=== PATIENT | female | born 1980 | race Two or more races ===

== ENCOUNTER 2018-11-18 03:56 | Observation (INO) | payer SELFPAY ==
[2018-11-18] MEDS ORDERED: Ketorolac 30 MG/ML SDV IVPUSH ONE (03:59)
[2018-11-18] MEDS ORDERED: Sodium Chloride 0.9% 1,000 ML IV ONE (03:59)
[2018-11-18] MEDS ORDERED: Ondansetron 4 MG/2 ML SDV IVPUSH ONE (03:59)
--- NOTE | 2018-11-18 03:59 | EDM.PDOC ---
<George Barbosa - Last Filed: 11/18/18 06:23> ED HPI GENERAL MEDICAL PROBLEM - General Stated Complaint: ABDOMINAL PAIN Time Seen by Provider: 11/18/18 03:59 Source of Information: Reports: Patient - History of Present Illness INITIAL COMMENTS - FREE TEXT/NARRATIVE: HISTORY AND PHYSICAL: History of present illness: [Patient presents with abdominal pain epigastric in nature radiating to the back Pain has been present 8 out of 10 since yesterday, she has had pain intermittently for the last year, she has been told that it may be biliary colic , and she has been making diet and weight loss adjustments accordingly she is not had any prior imaging no fever nausea vomiting chills sweats no chest pain shortness breath headache dizziness palpitation no bowel or urine symptoms Review of systems: As per history of present illness and below otherwise all systems reviewed and negative. Past medical history: As per history of present illness and as reviewed below otherwise noncontributory. Surgical history: As per history of present illness and as reviewed below otherwise noncontributory. Social history: No reported history of drug or alcohol abuse. Family history: As per history of present illness and as reviewed below otherwise noncontributory. Physical exam: HEENT: Atraumatic, normocephalic, pupils reactive, negative for conjunctival pallor or scleral icterus, mucous membranes moist, throat clear, neck supple, nontender, trachea midline. Lungs: Clear to auscultation, breath sounds equal bilaterally, chest nontender. Heart: S1S2, regular, negative for clicks, rubs, or JVD. Abdomen: Soft, nondistend multiple foci tenderness in right lower quadrant as well as right upper and epigastrium no guarding or rebound, negative for masses or hepatosplenomegaly. Negative for costovertebral tenderness. Pelvis: Stable nontender. Genitourinary: Deferred. Rectal: Deferred. Extremities: Atraumatic, negative for cords or calf pain. Neurovascular unremarkable. Neuro: Awake, alert, oriented. Cranial nerves II through XII unremarkable. Cerebellum unremarkable. Motor and sensory unremarkable throughout. Exam nonfocal. Diagnostics: [] CBC CMP UA lipase troponin CT abdomen pelvis with contrast Abdomen right upper quadrant limited Therapeutics: [] normal saline 1 L bolus toradol 30 mg IV Morphine 2 mg IV Impression: []pancreatitis Definitive disposition and diagnosis as appropriate pending reevaluation and review of above. Upper Abdomen Pain Score (Numeric/FACES): 8 - Related Data Allergies Allergy/AdvReac Type Severity Reaction Status Date / Time No Known Allergies Allergy Verified 11/18/18 04:12 Home Meds: Home Meds . [No Known Home Meds] 11/18/18 [History] Course - Vital Signs Last Recorded V/S: Last Vital Signs Temp 36.7 C 11/18/18 04:09 Pulse 74 11/18/18 07:28 Resp 16 11/18/18 07:28 BP 127/51 L 11/18/18 07:28 Pulse Ox 98 11/18/18 07:28 - Orders/Labs/Meds Orders: Active Orders 24 hr Category Date Time Status UA RFX KHLOE AND CULT IF INDIC [URIN] Stat Lab 11/18/18 03:00 Ordered Levofloxacin/Dextrose 5%-Water [Levaquin in D5W 750 MG/ Med 11/18/18 08:07 Active 150 ML] 750 mg Premix Bag 1 bag IV ONETIME Sodium Chloride 0.9% [Normal Saline] 1,000 ml Med 11/18/18 06:30 Active IV STAT metroNIDAZOLE/Normal Saline [Flagyl 500 MG in NS 100 ML Med 11/18/18 08:07 Active ] 500 mg Premix Bag 1 bag IV ONETIME Medication Orders Sodium Chloride (Normal Saline) 1,000 mls @ 150 mls/hr IV STAT KAELA Last Admin: 11/18/18 07:39 Dose: 150 mls/hr Levofloxacin/Dextrose 750 mg/ (Premix) 150 mls @ 100 mls/hr IV ONETIME ONE Stop: 11/18/18 09:36 Metronidazole 500 mg/ Premix 100 mls @ 100 mls/hr IV ONETIME ONE Stop: 11/18/18 09:06 Labs: Laboratory Tests 11/18/18 11/18/18 11/18/18 Range/Units 03:30 04:18 04:18 WBC 12.92 H (4.0-11.0) K/uL RBC 4.73 (4.30-5.90) M/uL Hgb 14.2 (12.0-16.0) g/dL Hct 41.9 (36.0-46.0) % MCV 88.6 (80.0-98.0) fL MCH 30.0 (27.0-32.0) pg MCHC 33.9 (31.0-37.0) g/dL RDW Std Deviation 44.9 (28.0-62.0) fl RDW Coeff of Kami 14 (11.0-15.0) % Plt Count 231 (150-400) K/uL MPV 10.90 (7.40-12.00) fL Neut % (Auto) 79.7 (48.0-80.0) % Lymph % (Auto) 15.6 L (16.0-40.0) % White % (Auto) 4.1 (0.0-15.0) % Eos % (Auto) 0.5 (0.0-7.0) % Baso % (Auto) 0.1 (0.0-1.5) % Neut # (Auto) 10.3 H (1.4-5.7) K/uL Lymph # (Auto) 2.0 (0.6-2.4) K/uL White # (Auto) 0.5 (0.0-0.8) K/uL Eos # (Auto) 0.1 (0.0-0.7) K/uL Baso # (Auto) 0.0 (0.0-0.1) K/uL Nucleated RBC % 0.0 /100WBC Nucleated RBCs # 0 K/uL Sodium 136 (136-145) mmol/L Potassium 3.7 (3.5-5.1) mmol/L Chloride 101 (98-107) mmol/L Carbon Dioxide 26.6 (21.0-32.0) mmol/L BUN 6 L (7.0-18.0) mg/dL Creatinine 0.8 (0.6-1.0) mg/dL Est Cr Clr Drug Dosing 68.49 mL/min Estimated GFR (MDRD) > 60.0 ml/min Glucose 134 H (74-106) mg/dL Calcium 9.8 (8.5-10.1) mg/dL Total Bilirubin 1.6 H (0.2-1.0) mg/dL AST 211 H (15-37) IU/L ALT 305 H (14-63) IU/L Alkaline Phosphatase 192 H (46-116) U/L Troponin I < 0.050 (0.000-0.056) ng/mL Total Protein 7.6 (6.4-8.2) g/dL Albumin 3.0 L (3.4-5.0) g/dL Globulin 4.6 H (2.6-4.0) g/dL Albumin/Globulin Ratio 0.7 L (0.9-1.6) Lipase 1722 H (73-393) U/L Urine HCG, Qual NEGATIVE (NEGATIVE) Meds: Medications Generic Name Dose Route Start Last Admin Trade Name Freq PRN Reason Stop Dose Admin Sodium Chloride 1,000 mls @ 150 mls/hr 11/18/18 06:30 11/18/18 07:39 Normal Saline IV 150 mls/hr STAT KAELA Administration Levofloxacin/Dextrose 750 mg/ 150 mls @ 100 mls/hr 11/18/18 08:07 Premix IV 11/18/18 09:36 ONETIME ONE Metronidazole 500 mg/ Premix 100 mls @ 100 mls/hr 11/18/18 08:07 IV 11/18/18 09:06 ONETIME ONE Discontinued Medications Generic Name Dose Route Start Last Admin Trade Name Freq PRN Reason Stop Dose Admin Sodium Chloride 1,000 mls @ 999 mls/hr 11/18/18 03:59 11/18/18 04:18 Normal Saline IV 11/18/18 04:59 999 mls/hr STAT ONE Administration Iopamidol 100 ml 11/18/18 05:56 11/18/18 05:57 [id number] (76%) IVPUSH 11/18/18 05:57 100 ml ONETIME ONE Administration Ketorolac Tromethamine 30 mg 11/18/18 03:59 11/18/18 04:18 Toradol IVPUSH 11/18/18 04:00 30 mg ONETIME ONE Administration Morphine Sulfate 2 mg 11/18/18 06:02 11/18/18 06:13 Morphine IVPUSH 11/18/18 06:03 2 mg ONETIME ONE Administration Ondansetron HCl 8 mg 11/18/18 03:59 11/18/18 04:19 Zofran IVPUSH 11/18/18 04:00 8 mg ONETIME ONE Administration Departure - Departure Disposition: Refer to Observation Clinical Impression: Abdominal pain, Cholecystitis - Discharge Information Referrals: PCP,None [Primary Care Provider] - - My Orders Last 24 Hours: My Active Orders 11/18/18 08:07 Levofloxacin/Dextrose 5%-Water [Levaquin in D5W 750 MG/150 ML] 750 mg Premix Bag 1 bag IV ONETIME metroNIDAZOLE/Normal Saline [Flagyl 500 MG in NS 100 ML] 500 mg Premix Bag 1 bag IV ONETIME - Assessment/Plan Last 24 Hours: My Active Orders 11/18/18 08:07 Levofloxacin/Dextrose 5%-Water [Levaquin in D5W 750 MG/150 ML] 750 mg Premix Bag 1 bag IV ONETIME metroNIDAZOLE/Normal Saline [Flagyl 500 MG in NS 100 ML] 500 mg Premix Bag 1 bag IV ONETIME <Leandro Lockwood - Last Filed: 11/18/18 08:12> ED ROS GENERAL - Review of Systems Review Of Systems: ROS reveals no pertinent complaints other than HPI. ED EXAM, GENERAL - Physical Exam Exam: See Below (See dictation) Course - Vital Signs Text/Narrative:: Patient's emergency department course is been unremarkable ultrasound demonstrates a 7 mm common bile duct without evidence of common bile duct stone she does have wall thickening noted of her gallbladder in addition to cholelithiasis patient pain has been well controlled in emergency department antibiotics were ordered in the form of Levaquin and Flagyl case was discussed with general surgery who graciously has accepted the patient for admission as observation. Impression is #1 cholecystitis Departure - Departure Time of Disposition: 08:11 Condition: Good
[2018-11-18 04:51] LABS: CHLORIDE,CL 101 mmol/L (98-107); SODIUM,NA 136 mmol/L (136-145)
[2018-11-18] MEDS ORDERED: Iopamidol 755 Mg/ML 100 ML Bottle IVPUSH ONE (05:56)
[2018-11-18] MEDS ORDERED: Morphine 2 MG/ML Syringe IVPUSH ONE (06:02)
--- NOTE | 2018-11-18 06:18 | CT ---
INDICATION: Abdominal pain TECHNIQUE: CT abdomen and pelvis acquired with IV contrast. 100 cc Isovue 370 COMPARISON: None FINDINGS: Lower chest: Unremarkable. Liver: Hepatic steatosis Spleen: Unremarkable. Pancreas: Unremarkable. Gallbladder and bile ducts: Distended gallbladder with mild gallbladder wall thickening and pericholecystic fluid. Common bile duct at 9 millimeters. Findings worrisome for cholecystitis. Kidneys: Unremarkable. Adrenal glands: Unremarkable. GI tract: Colonic fecal retention. Appendix is normal. Vascular structures: Unremarkable. Lymph nodes: Unremarkable. Miscellaneous: Unremarkable. No free air or significant free fluid. Pelvic Organs: 3.0 centimeter right ovarian/adnexal cyst. Mild diffuse bladder wall thickening Bones: Unremarkable for age. IMPRESSION: Distended gallbladder with gallbladder wall thickening and pericholecystic fluid. Common bile duct dilated up to 9 millimeters. Findings worrisome for cholecystitis. Hepatic steatosis. Mild diffuse bladder wall thickening. 3.0 centimeter right ovarian/adnexal cyst. Colonic fecal retention. Normal appendix. Dictated by Mack Ferguson MD @ 11/18/2018 6:15:44 AM Please note that all CT scans at this facility use dose modulation, iterative reconstruction, and/or weight-based dosing when appropriate to reduce radiation dose to as low as reasonably achievable. Dictated by: Mack Ferguson MD @ 11/18/2018 06:15:54 (Electronically Signed)
[2018-11-18] MEDS ORDERED: Sodium Chloride 0.9% 1,000 ML IV SCH (06:30)
--- NOTE | 2018-11-18 08:04 | US ---
INDICATION: Pain. TECHNIQUE: Conventional two-dimensional grayscale ultrasound of the right upper quadrant. COMPARISON: Abdomen/pelvis CT performed earlier today. FINDINGS: Stones are present in the gallbladder. Mild gallbladder wall thickening is noted along with a small amount of pericholecystic fluid. No gallbladder wall thickening or pericholecystic fluid is demonstrated. The patient is reportedly not tender over the gallbladder. Note, however, the patient has received pain medication. No intrahepatic biliary ductal dilation is evident. The common bile duct measures 7 mm. Fatty change is demonstrated in the liver. The liver is normal in size and shape. The pancreas is within normal limits. The right kidney is unremarkable. The visualized portion of the abdominal aorta and inferior vena cava are negative. IMPRESSION: 1. Cholelithiasis and presumed acute cholecystitis. 2. Mildly prominent common duct at 7 mm in diameter. Intrahepatic ducts normal in caliber. 3. Fatty liver. Dictated by Félix Linares MD @ Nov 18 2018 7:58AM Signed by Dr. Félix Linares @ Nov 18 2018 8:02AM
[2018-11-18] MEDS ORDERED: metroNIDAZOLE/Normal Saline 500 MG in Premix Bag 1 BAG IV ONE (08:07)
[2018-11-18] MEDS ORDERED: Levofloxacin/Dextrose 5%-Water 750 MG in Premix Bag 1 BAG IV ONE (08:07)
[2018-11-18] MEDS ORDERED: diphenhydrAMINE 25 MG Cap PO PRN (10:28)
[2018-11-18] MEDS ORDERED: Acetaminophen/oxyCODONE 325-5 MG Tab PO PRN (10:29)
[2018-11-18] MEDS ORDERED: Lactated Ringers 1,000 ML IV SCH (10:30)
--- NOTE | 2018-11-18 15:19 | PCM.SN ---
- Free Text/Narrative Note: pt seen, chart reviewed; likely passed a stone; long dw pt re eleved lft and panc enzyme; shy away from fatty food, seek med help if pain recur; and see primary care or gen surgeon in a wk; pt voiced understanding; [id number]
--- NOTE | 2018-11-18 22:41 | HP ---
DATE OF : 1980 PRIMARY CARE PHYSICIAN: None PCP CONSULTING QUESTION: Acute cholecystitis. HISTORY OF PRESENT ILLNESS: The patient is a 38-year-ago lady, visiting friends in [place], developed right upper quadrant pain and pain intensified. She came to the emergency room, and at that time, workup included CAT scan and ultrasound. CAT scan suspects acute cholecystitis with a thickened gallbladder wall and gallstones. Followup ultrasound is much less clear. Wall is not that thickened, and common bile is only 7 mm compared to the CAT scan of 9 mm. Of note, the patient lost over 80 pounds for the last 1 year with intention to keep weight loss. Denied jaundice. Denied dark urine. Denied white stool. ALLERGIES: Please refer to nursing for details. MEDICATIONS: Please refer to nursing for details. PAST MEDICAL HISTORY: Significant for no diabetes, ME, CVA, or hypertension. PAST SURGICAL HISTORY: x1 ten years ago. REVIEW OF SYSTEMS: Same as history of present illness. SOCIAL HISTORY: The patient denies alcohol or tobacco abuse. PHYSICAL EXAMINATION: GENERAL: A very pleasant lady, resting in bed, and smiled to doctor, in absolutely no acute distress, and the patient denies she has any pain at all. HEENT: Normocephalic and atraumatic. Sclerae anicteric. LUNGS: Clear to auscultation. HEART: Regular rate and rhythm. ABDOMEN: Soft, nondistended. No pulsating tender midline abdominal structure and no surgical scar. Pfannenstiel incision is intact. LABORATORY DATA: Upon consultation, white count 12.9 and BUN is 6, creatinine is 0.8. Total bilirubin is 1.6. An AST and ALT are elevated at 200 and 100 and alkaline phosphatase is 190. The lipase is 1700. IMPRESSION AND PLAN: Ultrasound does not show common bile duct stone, and the patient has a mildly elevated liver function tests and elevated lipase, possibly is passing a stone. In all aspects, the patient has absolutely no pain right now and requests to leave the hospital. The patient has no clinical symptom and responded very well to IV antibiotic Levaquin and pain medication. Agreed to discharge the patient, and the patient will seek back the healthcare attention when clinical situation changes. The patient promised to be shy from fatty food and will seek medical help if clinical situation changes. A long discussion with the patient over half an hour. The patient will seek medical help when she returned to her home town [place] and either see a primary care provider or general surgeon. Discussed about the issue of gallstone and pancreatitis. As always, thank you for the kind referral. RICARDO PRASAD /[id number]
== END 2018-11-18 17:15 | disposition home or self-care (01) ==
LOC: MW.ED 03:56 → MW.MS 09:00
PROVIDERS: ADMIT Surgery; ATTEND Surgery
DX: K80.00 Calculus of gallbladder with acute cholecystitis without obstruction (principal); R94.5 Abnormal results of liver function studies; K76.0 Fatty (change of) liver, not elsewhere classified
CPT/HCPCS: 74177; 76705; 80053; 81003; 81025; 83690; 84484; 85025; 96361; 96365; 96375; 99285; A9270; G0378; J1885; J2270; J2405; J3490; J7040; J7120; Q9967; J1956